=== PATIENT | female | born 1980 | race Two or more races ===

== ENCOUNTER 2022-12-14 07:36 | Outpatient (CLI) | payer OTHER ==
[~2022-12-14 07:36] MED LIST: CLONAZEPAM0.5 MG
== END 2022-12-14 07:39 | disposition home or self-care (01) ==
LOC: LAB 07:36
PROVIDERS: ATTEND Obstetrics & Gynecology
DX: N91.1 Secondary amenorrhea (principal); R07.89 Other chest pain; R05.9 Cough, unspecified

== ENCOUNTER 2022-12-15 15:12 | Inpatient (IN) | payer OTHER ==
[~2022-12-15] VITALS: Ht 165.1 cm; Wt 95.3 kg
== END 2022-12-24 12:49 | disposition home or self-care (01) | DRG 743 ==
LOC: O/R 12-21 05:25 → OB/GYN 12-21 13:21 → CIR.AMB 12-21 14:35 → SURG 12-21 14:36 → EDSTATUS 12-21 14:36 → SURG 12-21 17:15 → OB/GYN 12-24 12:49
PROVIDERS: ADMIT Obstetrics & Gynecology; ATTEND Obstetrics & Gynecology
PROC: 0UT70ZZ Resection of Bilateral Fallopian Tubes, Open Approach (ICD-10-PCS; 2022-12-21)
PROC: 0UT20ZZ Resection of Bilateral Ovaries, Open Approach (ICD-10-PCS; 2022-12-21)
PROC: 0DNW0ZZ Release Peritoneum, Open Approach (ICD-10-PCS; 2022-12-21)
PROC: 0UT90ZL Resection of Uterus, Supracervical, Open Approach (ICD-10-PCS; principal; 2022-12-21 17:15)
DX: D25.9 Leiomyoma of uterus, unspecified (principal); N73.6 Female pelvic peritoneal adhesions (postinfective); Z20.822 Contact with and (suspected) exposure to COVID-19; N80.03 Adenomyosis of the uterus